=== PATIENT | male | born 1995 | race Caucasian/White ===

== ENCOUNTER 2016-11-17 15:04 | Inpatient (IN) | payer MEDICAID ==
[2016-11-17] VITALS (7 sets, daily range): BP systolic 117–150; BP diastolic 55–79; PULSE 61–100; RESP 12–22; TEMP 98–99.1; O2SAT 97–100
[~2016-11-17] VITALS: Ht 182.9 cm; Wt 81.6 kg
--- NOTE | 2016-11-17 | NUR ---
Patient lying in bed, alert and talking with his fiancee. No sign of distress noted. Will continue to monitor. Addendum: 11/19/16 at 0244 by Liliane De La Torre RN wrong date
--- NOTE | 2016-11-17 | NUR ---
Observed patient lying in bed with eyes closed. Rise and fall of chest noted. no sign of immediate distress noted. Satyae at bedside. Addendum: 11/19/16 at 0242 by Liliane De La Torre RN wrong date. should be 11/18/2016 0000H.
--- NOTE | 2016-11-17 15:04 | NUR ---
BROUGHT IN BY ACLS [address] AND ANGELITO CASTANEDA, PLACED IN BED #1 AND TRIAGED. REPORT GIVEN TO TERESO
--- NOTE | 2016-11-17 15:09 | NUR ---
Telemetry strip printed and interpreted as sinus tachycardia. HR: 101
--- NOTE | 2016-11-17 15:10 | NUR ---
Patient was brought in by ACLS. Patient is awake, alert and oriented x4. Patient states that he took 24 tablets of Tylenol but unable to give dosage about 1 hour prior to arrival. Patient states that he has pain in his hamstring. Denies any other drugs used. No other complaints or injuries per patient or as noted.
--- NOTE | 2016-11-17 15:11 | NUR ---
PT STATES THAT HE DID NOT WANT TO KILL HIMSELF, STATES HE HAS A PULLED HAMSTRING AND TOOK IT FOR PAIN.
--- NOTE | 2016-11-17 15:12 | NUR ---
Called Poison Control at [phone] and spoke with Ting, Pharmacist . Per recommendations: Activated Charcoal 1gm/kg, Salicylate level, Blood Alcohol, CMP, CBC, and Urine Drug Screen now. At 1820, 4 hour Tylenol Level, if higher than 150 than 24 hour dosage of Mu[address]ist. Dr. Reyna notified. Will continue to monitor patient.
--- NOTE | 2016-11-17 15:15 | NUR ---
Lethality assesment and patient & room/environment safety checklist done.
--- NOTE | 2016-11-17 15:34 | NUR ---
Patient placed on suicide precautions. Patient placed in room 1 within close proximity to nurses' station for closer observation and monitoring. All clothing removed, placed in hospital gown. Metal detector wand used to further screen patient of any potential hazardous belongings. All belongings inventoried, placed in bags and removed from room. Addendum: 11/17/16 at 1609 by SDEDCJM Patient is on Nasal Cannula 2L, Pulse oximetry, blood pressure, and cardiac monitoring.
--- NOTE | 2016-11-17 15:44 | NUR ---
Note praful in ED - 11/17/16 at 1618 by SDEDCJM Patient's girlfriend, Kristel, took 24 tablets of Tylenol 500 mg around [id number]. She reports that around 1340 today patient arrived at her place of work stating that "this is over". Girlfriend reports that patient has been depressed lately and has recently lost her mother. Girlfriend denies any previous suicidal attempts and does report that he is seeing a psychologist on his college campus. Girlfriend will go home to bring bottle of Tylenol.
--- NOTE | 2016-11-17 15:44 | NUR ---
Patient's girlfriend, Kristel, took 24 tablets of Tylenol 500 mg around 8953-1611. She reports that around 1340 today patient arrived at her place of work stating that "this is over". Girlfriend reports that patient has been depressed lately and has recently lost his mother. Girlfriend denies any previous suicidal attempts and does report that he is seeing a psychologist on his college campus. Girlfriend will go home to bring bottle of Tylenol.
--- NOTE | 2016-11-17 16:05 | NUR ---
Girlfriend brought in tylenol 500mg capsule bottle. Bottle counted and 28 capsules (14,000 mg) are missing. Girlfriend reports that bottle was brand new prior to patient ingesting it. Dr. Reyna notified.
[2016-11-17] MEDS ORDERED: D5W IV ONE ×3 (16:15→19:15)
[2016-11-17] MEDS ORDERED: ACETYLCYSTEINE IV ONE ×3 (16:15→19:15)
[2016-11-17 16:30] LABS: BASOPHILS % (AUTO) 0.7 % (0.0-2.0); EOSINOPHILS % (AUTO) 0.6 % (0.0-4.0); HEMATOCRIT 40.8 % (36-54); HEMOGLOBIN 13.1 g/dL (14.0-18.0); LYMPHOCYTES # (AUTO) 1.1 K/uL (1.0-5.5); LYMPHOCYTES % (AUTO) 15.2 % (20.5-51.5); MEAN CORPUSCULAR HEMOGLOBIN 29 pg (27-31); MEAN CORPUSCULAR HGB CONC 32 % (32-36); MEAN CORPUSCULAR VOLUME 88 fL (79.0-98.0); MONOCYTES # (AUTO) 0.5 K/uL (0.0-1.0); MONOCYTES % (AUTO) 7.4 % (1.7-9.3); NEUTROPHILS # (AUTO) 5.3 K/uL (1.8-7.7); NEUTROPHILS % (AUTO) 76.1 % (40.0-70.0); PLATELET COUNT (AUTO) 347 K/uL (130-430); RED BLOOD CELL COUNT(AUTO) 4.61 MIL/uL (4.2-6.2); RED CELL DISTRIBUTION WIDTH 11.8 % (9.0-15.0); WHITE BLOOD COUNT (AUTO) 6.9 K/uL (4.8-10.8)
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
[2016-11-17 16:41] LABS: ANION GAP 5 (5-15); CHLORIDE 104 mmol/L (98-107); CREATININE 1.17 mg/dL (0.55-1.30); GLUCOSE 102 mg/dL (70-99); POTASSIUM 4.1 mmol/L (3.5-5.1); SODIUM SERUM 138 mmol/L (136-145); UREA NITROGEN, BLOOD 12 mg/dL (8-21)
[2016-11-17] MEDS ORDERED: ACETYLCYSTEINE IV 6000 MG/30 ML VIAL IV ONE (16:43)
[2016-11-17 16:45] LABS: ALANINE AMINOTRANSFERASE 44 U/L (12-78); ALBUMIN 3.6 g/dL (3.4-4.8); ASPARTATE AMINOTRANSFERASE 57 U/L (10-37); SALICYLATE 1 mg/dL (3-30); TOTAL BILIRUBIN 0.3 mg/dL (0.0-1.0); TOTAL PROTEIN, SERUM 7.6 g/dL (6.4-8.3)
[2016-11-17 16:51] LABS: GFR AFRICAN AMERICAN 100 mL/min (>90)
[2016-11-17 16:52] LABS: ALCOHOL, BLOOD < 3 mg/dL (<10)
[2016-11-17 16:57] LABS: ACETAMINOPHEN 106 ug/mL (1-30)
[2016-11-17 16:58] LABS: BARBITURATE, URINE NEGATIVE (NEG <=200); BENZODIAZEPINE, URINE NEGATIVE (NEG <=150); CANNABINOID, URINE POSITIVE (NEG <=50); COCAINE, URINE NEGATIVE (NEG <=150); METHAMPHETAMINES SCREEN,URINE NEGATIVE (NEG <=500); OPIATE, URINE NEGATIVE (NEG <=100); PHENCYCLIDINE SCREEN,URINE NEGATIVE (NEG <=25); UR TRICYCLIC ANTIDEPRESSANTS NEGATIVE (NEG <=300); URINE AMPHETAMINE NEGATIVE (NEG <=500); URINE METHADONE NEGATIVE (NEG <=200); URINE OXYCODONE SCREEN NEGATIVE (NEG <=100); URINE PROPOXYPHENE SCREEN NEGATIVE (NEG <=300)
--- NOTE | 2016-11-17 18:10 | NUR ---
Patient will be admitted to care of Dr. Navarro. Admitted to ICU unit. Will go to room 8. Belongings list completed. Summary report printed. Report will be given at bedside to ANDRA Muro.
--- NOTE | 2016-11-17 18:10 | NUR ---
ADMISSION NOTE Received patient from ER via gurney, received report at bedside by RN. Patient admitted with diagnosis of Acute Acetaminophen Overdose. Patient oriented to hospital routine, call light, toileting and safety-patient verbalized understanding. Patient awake,alert,oriented x 4, guarded upon approach, lethargic and evasive to policy writer during admit. Addendum: 11/17/16 at 1945 by Bhaskar Borja RN Room/environment safety checked upon admission. Addendum: 11/17/16 at 1999 by Bhaskar Borja RN All belongings and contraband sent home with Kay reed.
--- NOTE | 2016-11-17 18:15 | NUR ---
PT OBSERVED AT BEDSIDE AND LYING IN BEAD. SR ON MONITOR AND VSS. INFORMED OF CAMERA FOR CONTINUOUS MONITORING.
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
--- NOTE | 2016-11-17 18:25 | NUR ---
PATIENT UPDATE: Patient currently vomiting, no signs of distress, vss.
--- NOTE | 2016-11-17 18:30 | NUR ---
OBSERVED AT BEDSIDE AND IN NO DISTRESS. C/O NAUSEA.
--- NOTE | 2016-11-17 18:40 | NUR ---
PATIENT UPDATE: Patient resting in bed, no signs of distress, vss. Patient continues to be monitored closely. Deputy Sheriff obrien # [id number] at bedside interviewing patient.
--- NOTE | 2016-11-17 18:42 | NUR ---
Dr Macedo's exchange called. Called Dr. Macedo's exchange for consult. exchanged informed me that he is unavailable. Requested whoever is communication clerk to be called with consult. Dr. Gonzales will be notified.
--- NOTE | 2016-11-17 18:45 | NUR ---
PT VOMITING AND NURSE WITH PT AT BEDSIDE.
--- NOTE | 2016-11-17 18:55 | NUR ---
PATIENT UPDATE: Patient resting in bed with girlfriend. No signs of distress, vss. Patient continues to be monitored closely.
--- NOTE | 2016-11-17 19:00 | NUR ---
PT OBSERVED AT BEDSIDE AND FAMILY MEMBERS PRESENT TALKING TO .
[2016-11-17] MEDS ORDERED: ONDANSETRON HCL 4 MG/2 ML VIAL IVP PRN (19:15)
--- NOTE | 2016-11-17 19:15 | NUR ---
OBSERVED PT AT BEDSIDE WHILE HANGING IV. NO DISTRESS.
--- NOTE | 2016-11-17 19:20 | NUR ---
CLOSING NOTE: Edorsed care to ANDRA Uriarte. Report given at bedside. Lethality assesment and patient & room/environment safety checklist endorsed to ANDRA Uriarte.
--- NOTE | 2016-11-17 19:20 | NUR ---
DR CHENG/POISON CONTROL SPOKE WITH DR CHENG REGARDING POISON CONTROL GUIDELINES. HE SAID TO FOLLOW ALL THEIR RECOMMENDATIONS AND ENTER THE ORDERS FOR MEDICATIONS OR LABS NECESSARY. ENDORSED TO ONCOMING SHIFT.
[2016-11-17] MEDS: NACL 0.9% 1,000 ML IV SCH (19:30)
--- NOTE | 2016-11-17 19:30 | NUR ---
OBSERVED PT AT BEDSIDE. FAMILY PRESENT. PT NOT SPEAKING. NO DISTRESS. CHOCOLATE DIPPER TO ASSUME CARE.
--- NOTE | 2016-11-17 19:35 | NUR ---
PM SHIFT ASSESSMENT Patient alert and oriented and able to make needs known. Breathing unlabored. Afebrile. Pulses strong and palpable in all extremities. IV on left AC,18g, patent and intact, no sign of redness and swelling on IV site. Acetadote IV 4500 mg running at 125ml/hr. Patient denies pain at this time. Patient crying. Fiancee at bedside comforting patient. Call light within reach. Bed at lowest position.
[2016-11-17] MEDS ORDERED: MAGNESIUM SULFATE 50 ML IV PRN (20:00)
[2016-11-17] MEDS ORDERED: POTASSIUM CHLORIDE 10 MEQ TAB.PRT.SR PO PRN (20:00)
[2016-11-17] MEDS ORDERED: DOCUSATE SODIUM 100 MG CAPSULE PO PRN (20:00)
[2016-11-17] MEDS ORDERED: LORazepam 2 MG/ML VIAL IVP PRN (20:00)
[2016-11-17] MEDS ORDERED: ZOLPIDEM TARTRATE 5 MG TABLET PO PRN (20:00)
--- NOTE | 2016-11-17 20:00 | NUR ---
VOMIT PT. vomited yellowish liquid about 50 ml. Pt. complaining of stomach pain. 10/10 pain level verbalized by the patient. Patient crying and turning in bed. Seth and seth's mom at bedside.
--- NOTE | 2016-11-17 20:15 | NUR ---
PAIN Pain medication given to patient. Surya still at bedside and asked permission if she could stay the night.
--- NOTE | 2016-11-17 20:20 | NUR ---
AGITATED, ON HIS KNEES IN THE BED, MOANING IN PAIN WITH MONITOR LEADS OFF.ASSISTED TO LAY BACK IN BED, PLACED LEADS BACK ON.GIRLFRIEND AT BEDSIDE AND PT SAID "JUST LET ME ".REASSURED AND EMOTIONAL SUPPORT GIVEN AND PAIN MED GIVEN THIS TIME.
[2016-11-17] MEDS: MORPHINE 2 MG/ML INJ. SYRINGE IVP PRN (20:22)
--- NOTE | 2016-11-17 21:00 | NUR ---
OBSERVATION Observed patient at bedside with fiancee. Denies any pain at this time. No sign of distress noted. Will continue to monitor.
--- NOTE | 2016-11-17 21:15 | NUR ---
Observed patient talking to umeshe at bedside. No sign of distress noted.
--- NOTE | 2016-11-17 21:30 | NUR ---
Observed patient at bedside. Lying in bed with eyes closed. Fiancee at bedside.
--- NOTE | 2016-11-17 21:35 | NUR ---
WANDING: Security came to wand patient. Patient calm, in no acute distress or SOB. Satya and satya's mother at bedside.
--- NOTE | 2016-11-17 21:45 | NUR ---
Voided Patient's fiancee assisted patient to void in the toilet seat. PAtient does not want to use the urinal provided at bedside. Unable to measure output. Urinated yellow,clear liquid.
[2016-11-17] MEDS: ONDANSETRON HCL 4 MG/2 ML VIAL IVP PRN (21:54)
[2016-11-17] MEDS ORDERED: MAGNESIUM SULFATE 50 ML IV ONE (21:58)
--- NOTE | 2016-11-17 22:00 | NUR ---
Observed patient at bedside. resting comfortably with eyes closed. Fiancee at bedside.
--- NOTE | 2016-11-17 22:15 | NUR ---
Observed patient lying in bed with eyes closed. Rise and fall of chest noted. no sign of immediate distress noted. Fiancee at bedside.
--- NOTE | 2016-11-17 22:30 | NUR ---
Observed patient lying in bed with eyes closed. Rise and fall of chest noted. no sign of immediate distress noted. Fiancee at bedside.
--- NOTE | 2016-11-17 22:45 | NUR ---
Patient observed. Lying in bed with eyes closed. no immediate sign of distress noted.
--- NOTE | 2016-11-17 23:00 | NUR ---
Patient observed. Lying in bed with eyes closed. no immediate sign of distress noted.
--- NOTE | 2016-11-17 23:15 | NUR ---
Patient lying in bed, alert and talking with his fiancee. No sign of distress noted. Will continue to monitor.
--- NOTE | 2016-11-17 23:30 | NUR ---
Observed patient talking to umeshe at bedside. No sign of distress noted.
--- NOTE | 2016-11-17 23:45 | NUR ---
Patient lying comfortably in bed with eyes closed. No sign of distress noted. Fiancee at bedside.
[2016-11-18] VITALS (24 sets, daily range): BP systolic 92–139; BP diastolic 43–92; PULSE 56–84; RESP 12–28; TEMP 97.4–98.9; O2SAT 95–99
--- NOTE | 2016-11-18 | NUR ---
Observed patient lying in bed with eyes closed. Rise and fall of chest noted. no sign of immediate distress noted. Fiancee at bedside.
--- NOTE | 2016-11-18 | NUR ---
Patient observed lying in bed with eyes closed. Rise and fall of chest noted. No sign of distress noted. Will continue to monitor.
--- NOTE | 2016-11-18 00:15 | NUR ---
Patient observed lying in bed with eyes closed. Rise and fall of chest noted. No sign of distress noted. Will continue to monitor.
--- NOTE | 2016-11-18 00:30 | NUR ---
PT UPDATE: Patient resting quietly. No acute distress noted. Vital signs within normal range. Satya and satya's mother at bedside. Will continue to monitor.
--- NOTE | 2016-11-18 00:45 | NUR ---
PT UPDATE: Patient crying at bedside with umesh's mother. No acute distress or SOB noted. No signs or indication that patient will hurt himself or others. Patient continues to be monitored closely.
--- NOTE | 2016-11-18 01:00 | NUR ---
PT UPDATE: Patient comfortably sleeping. Vital signs stable. Safety precautions in place. Fiance still at bedside. Will continue to monitor.
--- NOTE | 2016-11-18 01:15 | NUR ---
RESTING: Patient sleeping comfortably at this time. No acute distress or SOB noted. Vital signs stable. Will continue to monitor.
--- NOTE | 2016-11-18 01:30 | NUR ---
PT UPDATE: Patient in no acute distress. Patient awake, denies pain or discomfort at this time. Only complaining that he is hungry. 2 slices of turkey sandwich, jello and pudding given. Patient tolerating food well. Fiancee at bedside. Will continue to monitor.
--- NOTE | 2016-11-18 01:44 | NUR ---
DR MCCLAIN CALLED THAT SHE NO LONGER COMES HERE IN [facility], AND SHE SAID THAT WHEN THE CONSULT ORDER REACH THEIR OFFICE IN AM, THEY WILL DECIDE WHICH DOCTOR TO COME, COVERING FOR DR LARES.CALLED THE EXCHANGE AGAIN THIS TIME TO CLARIFY THE CONSULT THAT WE CALLED FOR EARLIER, TALKED TO ELIAS, AND SHE SAID DR LARES IS IN TOWN AND SHE WILL FORWARD THE ORDER TO HIM IN AM.
--- NOTE | 2016-11-18 01:45 | NUR ---
PT UPDATE: Patient went back to sleep after eating. No signs of distress noted. Patient denies having thoughts of hurting self or others. Denies pain or discomfort at this time. Safety precautions in place. Fiance still at bedside. Will continue to monitor.
--- NOTE | 2016-11-18 02:00 | NUR ---
PT UPDATE: Patient in no acute distress. Patient sleeping comfortably with fiance at bedside. Will continue to closely monitor.
--- NOTE | 2016-11-18 02:15 | NUR ---
PT UPDATE: Patient dozes in and out of sleep. When asked if he needs anything, patient shakes head from side to side then closes eyes. Patient in no acute distress at this time. Will continue to monitor.
[2016-11-18] MEDS: NACL 0.9% 1,000 ML IV SCH ×4 (02:30→22:18)
--- NOTE | 2016-11-18 02:30 | NUR ---
Observed patient lying in bed with eyes closed. No sign of distress noted. Will continue to monitor.
--- NOTE | 2016-11-18 02:45 | NUR ---
Observed patient lying in bed with eyes closed. No sign of distress noted. Will continue to monitor.
--- NOTE | 2016-11-18 03:00 | NUR ---
Patient lying in bed with fiancee at bedside. No sign of distress noted. RN asked patient if he needs anything. Patient said "no". Advise patient to use call light to ask for assistance. Call light within reach. Will continue to monitor.
--- NOTE | 2016-11-18 03:15 | NUR ---
Patient observed lying in bed with eyes closed. Rise and fall of chest noted. No sign of distress noted
--- NOTE | 2016-11-18 03:30 | NUR ---
Patient observed lying in bed with eyes closed. Rise and fall of chest noted. No sign of distress noted
--- NOTE | 2016-11-18 03:45 | NUR ---
Patient observed lying in bed with eyes closed. No sign of distress noted. Vital signs stable. fiancee still at bedside. Will continue to monitor.
--- NOTE | 2016-11-18 04:00 | NUR ---
PT UPDATE: Patient sleeping comfortably. No acute distress or SOB noted. Vital signs stable. Will continue to monitor.
--- NOTE | 2016-11-18 04:15 | NUR ---
PT UPDATE: No significant change in condition. Patient's condition stable. Bed maintained in lowest level. Call light within reach. In no acute distress or SOB at this time. Will continue to monitor.
--- NOTE | 2016-11-18 04:30 | NUR ---
Observed Pt. lying comfortably in bed with eyes closed. No sign of distress noted.
--- NOTE | 2016-11-18 05:10 | NUR ---
LAB: [employer] Serv[employer] at bedside for AM lab draw. Reminded electrician's helper Alessandra that Acetaminophen level is to be drawn at 0930. [employer] Servicer disagreed because she said that the sticker came out which means that the level should be drawn at this time. Informed electrician's helper that the order is at 0930 and not 0500 but electrician's helper argued that that's what they have in the lab and she stated that if that's the case then the order should be discontinued and reordered again but i argued that the order is 0930 and never been at 0500. Notified charge nurse about it.
--- NOTE | 2016-11-18 05:30 | NUR ---
X-RAY: oscillograph technician at bedside taking chest x-ray.
[2016-11-18] MEDS: ONDANSETRON HCL 4 MG/2 ML VIAL IVP PRN (05:34)
--- NOTE | 2016-11-18 05:45 | NUR ---
Patient awake,alert and oriented. Talking to his fiancee. No sign of distress noted. Will continue to monitor.
--- NOTE | 2016-11-18 06:00 | NUR ---
CHG BATH Pt. awake and alert. Fiancee still at bedside. CHG bath given by fiancee as per patient's request. No sign of distress noted.
--- NOTE | 2016-11-18 06:15 | NUR ---
Pt. observed talking to his fiancee. No sign of distress noted. Vital signs WNL.
--- NOTE | 2016-11-18 06:30 | NUR ---
Pt. observed lying in bed with eyes closed. No sign of distress noted. Fiancee still in the room with patient.
[2016-11-18 06:39] LABS: BASOPHILS % (AUTO) 0.3 % (0.0-2.0); EOSINOPHILS # (AUTO) 0.1 K/uL (0.0-0.4); EOSINOPHILS % (AUTO) 1.1 % (0.0-4.0); HEMATOCRIT 39.5 % (36-54); HEMOGLOBIN 13.1 g/dL (14.0-18.0); LYMPHOCYTES # (AUTO) 1.3 K/uL (1.0-5.5); LYMPHOCYTES % (AUTO) 20.7 % (20.5-51.5); MEAN CORPUSCULAR HEMOGLOBIN 30 pg (27-31); MEAN CORPUSCULAR HGB CONC 33 % (32-36); MEAN CORPUSCULAR VOLUME 89 fL (79.0-98.0); MONOCYTES # (AUTO) 0.8 K/uL (0.0-1.0); MONOCYTES % (AUTO) 11.9 % (1.7-9.3); NEUTROPHILS # (AUTO) 4.2 K/uL (1.8-7.7); PLATELET COUNT (AUTO) 294 K/uL (130-430); RED BLOOD CELL COUNT(AUTO) 4.43 MIL/uL (4.2-6.2); RED CELL DISTRIBUTION WIDTH 11.8 % (9.0-15.0); WHITE BLOOD COUNT (AUTO) 6.4 K/uL (4.8-10.8)
--- NOTE | 2016-11-18 06:45 | NUR ---
Patient observed lying in bed with eyes closed. Rise and fall of chest noted. No sign of distress noted
--- NOTE | 2016-11-18 07:00 | NUR ---
SAFETY MONITORING PT RESTING IN BED. EYES CLOSED. CHEST RISING AND FALLING. NO ACUTE DISTRESS.
[2016-11-18 07:02] LABS: ALBUMIN 2.9 g/dL (3.4-4.8); BILIRUBIN,DIRECT 0.1 mg/dL (0.0-0.3); CALCIUM 8.7 mg/dL (8.4-11.0); CREATININE 0.84 mg/dL (0.55-1.30); POTASSIUM 3.5 mmol/L (3.5-5.1); TOTAL BILIRUBIN 0.4 mg/dL (0.0-1.0); TOTAL PROTEIN, SERUM 6.9 g/dL (6.4-8.3)
--- NOTE | 2016-11-18 07:15 | NUR ---
SAFETY MONITORING PT RESTING IN BED. EYES CLOSED. CHEST RISING AND FALLING. NO ACUTE DISTRESS.
--- NOTE | 2016-11-18 07:30 | NUR ---
AM ROUNDS RECEIVED PT UP IN BED. AWAKE, ALERT, ORIENTED X4. BREATHING IS EVEN AND UNLABORED ON RA. NO ACUTE DISTRESS. VSS. TELEMETRY READS NSR ON MONITOR. THERAPEUTIC CONVERSATION HELD. PT DENIES SUICIDAL IDEATION NOW, BUT ADMITS THAT HE WANTED TO END HIS LIFE WHEN HE TOOK THE TYLENOL. PT DOES NOT WANT TO EXPLAIN WHY HE WANTED TO END HIS LIFE, BUT STATES THAT HE FEELS MUCH BETTER NOW AND DOES NOT FEEL LIKE HARMING HIMSELF ANYMORE. REASSURANCE AND COMFORT MEASURES PROVIDED TO PT. PT VERBALIZED GRATITUDE.
--- NOTE | 2016-11-18 07:37 | NUR ---
Nutrition Update Zbigniew Scale 17 noted. Pt admitted for acute acetaminophen overdose. Diet: regular BMI: 24.4 kg/m2 RD to follow per nutrition care standards.
--- NOTE | 2016-11-18 07:45 | NUR ---
SAFETY MONITORING PT SITTING UP IN BED. BREAKFAST TRAY SET UP. DISCUSSED POC. PT VERBALIZED UNDERSTANDING.
--- NOTE | 2016-11-18 08:00 | NUR ---
SAFETY MONITORING PT SITTING UP EATING BREAKFAST AND TALKING TO GIRLFRIEND AT BEDSIDE.
--- NOTE | 2016-11-18 08:15 | NUR ---
SAFETY MONITORING BREAKFAST TRAY PICKED UP. PT ASKED IF HIS "BLOOD LEVELS [ARE]GOOD ENOUGH TO GO HOME." EXPLAINED TO PT THAT LABS ARE STILL BEING MONITORED. THE NEXT LAB DRAW IS AT 0930. WE WILL FIRST NEED TO WAIT FOR RESULTS. DR CHENG WILL SEE PT TODAY.
--- NOTE | 2016-11-18 08:30 | NUR ---
SAFETY MONITORING PT RESTING IN BED. EYES CLOSED. CHEST RISING AND FALLING. NO ACUTE DISTRESS.
--- NOTE | 2016-11-18 08:45 | NUR ---
SAFETY MONITORING PT RESTING IN BED. EYES CLOSED. CHEST RISING AND FALLING. NO ACUTE DISTRESS.
--- NOTE | 2016-11-18 09:00 | NUR ---
SAFETY MONITORING PT RESTING IN BED. EYES CLOSED. CHEST RISING AND FALLING. NO ACUTE DISTRESS.
--- NOTE | 2016-11-18 09:15 | NUR ---
SAFETY MONITORING PT RESTING IN BED. EYES CLOSED. CHEST RISING AND FALLING. NO ACUTE DISTRESS.
--- NOTE | 2016-11-18 09:30 | NUR ---
SAFETY MONITORING PT RESTING IN BED. EYES CLOSED. CHEST RISING AND FALLING. NO ACUTE DISTRESS.
--- NOTE | 2016-11-18 09:45 | NUR ---
SAFETY MONITORING IVF BAG REPLACED. PT IS STILL RESTING WITH EYES CLOSED.
--- NOTE | 2016-11-18 10:00 | NUR ---
SAFETY MONITORING PT RESTING IN BED. EYES CLOSED. CHEST RISING AND FALLING. NO ACUTE DISTRESS.
--- NOTE | 2016-11-18 10:15 | NUR ---
HERE DR CHENG, PCP, HERE TO SEE PT. ASSESSMENT/CONVERSATION HELD AT BEDSIDE. NEW ORDERS NOTED.
--- NOTE | 2016-11-18 10:30 | NUR ---
SAFETY MONITORING PT IS SITTING UP. PT VERBALIZING FEELING HAPPY. PT REPORTS RECEIVING MEDICAL CLEARANCE FROM DR CHENG. DISCUSSED MD VISIT WITH PT. UPDATED PT ON PROTOCOL- WE NEED TO WAIT FOR DR LARES TO SEE PT FOR CLEARANCE. PT VERBALIZED UNDERSTANDING.
--- NOTE | 2016-11-18 10:45 | NUR ---
CONSULT: FOLLOW UP DR. ARNAUD HANSON CALLED FOR CONSULT FOLLOW UP. SPOKE TO ROCKY ( [facility]CHANGE).
[2016-11-18 10:52] LABS: ALBUMIN 2.8 g/dL (3.4-4.8); BILIRUBIN,DIRECT 0.2 mg/dL (0.0-0.3); TOTAL BILIRUBIN 0.4 mg/dL (0.0-1.0); TOTAL PROTEIN, SERUM 6.7 g/dL (6.4-8.3)
--- NOTE | 2016-11-18 11:00 | NUR ---
SAFETY MONITORING PT RESTING IN BED. EYES CLOSED. CHEST RISING AND FALLING. NO ACUTE DISTRESS.
--- NOTE | 2016-11-18 11:15 | NUR ---
SAFETY MONITORING PT UP IN BED. ASKING FOR GIRLFRIEND. GIRLFRIEND RETURNED FROM WAITING ROOM
--- NOTE | 2016-11-18 11:30 | NUR ---
SAFETY MONITORING PT C/O BEING HUNGRY. DIETARY WILL BE HERE BETWEEN [id number]. PT REQUEST AN EXTRA SANDWICH WITH LUNCH. CALLED DIETARY- PLACED ORDER.
--- NOTE | 2016-11-18 11:45 | NUR ---
SAFETY MONITORING PT RESTING IN BED. TALKING WITH GF AT BEDSIDE
--- NOTE | 2016-11-18 12:00 | NUR ---
SAFETY MONITORING LUNCH TRAY HERE. SET UP TRAY AT BEDSIDE. PT REPORTS THAT HE IS FEELING BETTER NOW.
--- NOTE | 2016-11-18 12:15 | NUR ---
SAFETY MONITORING PT SITTING UP AT EOB EATING LUNCH, TALKING WITH GF. NO FURTHER NEEDS.
--- NOTE | 2016-11-18 12:30 | NUR ---
SAFETY MONITORING PT RESTING IN BED TALKING WITH GIRLFRIEND. NO NEEDS AT THIS TIME
--- NOTE | 2016-11-18 12:45 | NUR ---
SAFETY MONITORING PT RESTING IN BED TALKING WITH GIRLFRIEND. NO NEEDS AT THIS TIME
--- NOTE | 2016-11-18 13:00 | NUR ---
SAFETY MONITORING PT RESTING IN BED TALKING WITH GIRLFRIEND. NO NEEDS AT THIS TIME
--- NOTE | 2016-11-18 13:15 | NUR ---
SAFETY MONITORING PT RESTING IN BED TALKING WITH GIRLFRIEND. NO NEEDS AT THIS TIME
--- NOTE | 2016-11-18 13:30 | NUR ---
SAFETY MONITORING PT RESTING IN BED. EYES CLOSED. CHEST RISING AND FALLING. NO ACUTE DISTRESS.
--- NOTE | 2016-11-18 13:45 | NUR ---
SAFETY MONITORING PT RESTING IN BED. EYES CLOSED. CHEST RISING AND FALLING. NO ACUTE DISTRESS.
--- NOTE | 2016-11-18 14:00 | NUR ---
SAFETY MONITORING PT RESTING IN BED. EYES CLOSED. CHEST RISING AND FALLING. NO ACUTE DISTRESS.
--- NOTE | 2016-11-18 14:15 | NUR ---
SAFETY MONITORING PT RESTING IN BED. EYES CLOSED. CHEST RISING AND FALLING. NO ACUTE DISTRESS.
--- NOTE | 2016-11-18 14:30 | NUR ---
RN ROUNDS MOTHER AND GRANDMOTHER OF GIRLFRIEND AT BEDSIDE TALKING TO PT. DISCUSSING PT BABY WITH GIRLFRIEND. I ASKED PT ABOUT THE BABY. PT IS SMILING WHILE SPEAKING OF HER. PT TOLD ME THAT HIS BABY IS ALMOST TWO Y/O. HER NAME IS SAMPSON. PT IS PLEASANT AND SEEMS HAPPY WHILE DISCUSSING BABY.
--- NOTE | 2016-11-18 14:45 | NUR ---
RN ROUNDS PT IS CRYING WITH GIRLFRIEND AND HER FAMILY. GIRLFRIENDS GRANDMOTHER IS TELLING PT HOW MUCH SHE LOVES HIM. PT IS CRYING AND HUGGING GIRLFRIENDS GRANDMOTHER.
--- NOTE | 2016-11-18 15:00 | NUR ---
SAFETY MONITORING PT IS UP IN BED VISITING WITH GF AND FAMILY. PT IS PLEASANT AND APPEARS TO BE IN GOOD SPIRITS
--- NOTE | 2016-11-18 15:15 | NUR ---
SAFETY MONITORING PT IS SITTING UP IN BED TALKING WITH GIRLFRIEND AND FAMILY.
--- NOTE | 2016-11-18 15:30 | NUR ---
SAFETY MONITORING PT IS SITTING UP IN BED TALKING WITH GIRLFRIEND AND FAMILY.
[2016-11-18] MEDS: MORPHINE 2 MG/ML INJ. SYRINGE IVP PRN ×2 (15:38→21:15)
--- NOTE | 2016-11-18 15:45 | NUR ---
SAFETY MONITORING PT IS SITTING UP IN BED TALKING WITH GIRLFRIEND AND FAMILY.
--- NOTE | 2016-11-18 16:00 | NUR ---
SAFETY MONITORING PT IS SITTING UP IN BED EATING FOOD BROUGHT IN BY GIRLFRIENDS FAMILY
--- NOTE | 2016-11-18 16:15 | NUR ---
SAFETY MONITORING CHANCE MUÑOZ IN PT ROOM SPEAKING WITH HIM PRIVATELY Addendum: 11/18/16 at 1704 by Maria E Campbell RN DEMETRIO
--- NOTE | 2016-11-18 16:29 | NUR ---
Social Service Note: Pt referred to social security benefits interviewer by nursing for suicide risk. LEATHER GOODS I ASSEMBLER met with at bedside to complete DC plan assessment and psychosocial assessment; pt appears to be depressed with flat affect. Pt was cooperative with LEATH[employer] I ASSEMBLER. LEATHER [employer] I ASSEMBLER spoke with pt about the pending psychiatric consult and the possible outcomes. Pt appears open to attending therapy/counseling to discuss his past and the events leading to his hospitalization. Pt currently denies any thoughts of hurting himself. Pt states that he did attempt to kill himself by taking the 26 tylenol. LEATHER [employer] I ASSEMBLER provided emotional support. LE[employer]ER [employer] I ASSEMBLER encouraged pt to open up and speak to psychiatrist when they complete the evaluation. LEATHER [employer] I ASSEMBLER provided pt with listing of outpatient mental health resources to arrange therapy/counseling once pt is discharged. LEATHER [employer] I ASSEMBLER will remain available for support and will follow up as needed.
--- NOTE | 2016-11-18 16:30 | NUR ---
SAFETY MONITORING DEMETRIO MUÑOZ IN PT ROOM SPEAKING WITH HIM PRIVATELY
--- NOTE | 2016-11-18 16:45 | NUR ---
SAFETY MONITORING PT UP IN BED TALKING WITH GIRLFRIEND AND FAMILY.
--- NOTE | 2016-11-18 17:06 | NUR ---
SAFETY MONITORING PT UP AT IN-ROOM TOILET. Addendum: 11/18/16 at 1707 by Maria E Campbell RN @1700
--- NOTE | 2016-11-18 17:15 | NUR ---
SAFETY MONITORING PT RESTING IN BED. EYES CLOSED, CHEST RISING AND FALLING. NO NONVERBAL INDICATION OF PAIN/DISCOMFORT
--- NOTE | 2016-11-18 17:30 | NUR ---
SAFETY MONITORING PT RESTING IN BED. EYES CLOSED, CHEST RISING AND FALLING. NO NONVERBAL INDICATION OF PAIN/DISCOMFORT
--- NOTE | 2016-11-18 17:45 | NUR ---
SAFETY MONITORING PT RESTING IN BED. EYES CLOSED, CHEST RISING AND FALLING. NO NONVERBAL INDICATION OF PAIN/DISCOMFORT
--- NOTE | 2016-11-18 18:00 | NUR ---
SAFETY MONITORING PT RESTING IN BED. EYES CLOSED, CHEST RISING AND FALLING. NO NONVERBAL INDICATION OF PAIN/DISCOMFORT
--- NOTE | 2016-11-18 18:10 | NUR ---
POISON CONTROL RECEIVED A CALL FROM NORMA FROM POISON CONTROL. ACCORDING TO ACETAMINOPHEN POISON CONTROL, LFT NEEDS TO BE DRAWN 1HR BEFORE MUCOMYST IS DONE. IF THE AST LAB RESULT TRENDS UP- THEN CONTINUE WITH MUCOMYST. IF AST LAB IS DOWN, THEN MUCOMYST IS COMPLETED.
--- NOTE | 2016-11-18 18:15 | NUR ---
SAFETY MONITORING PT SITTING UP IN BED VISITING WITH FAMILY AND EATING FOOD FROM HOME
--- NOTE | 2016-11-18 18:30 | NUR ---
SAFETY MONITORING PT SITTING UP IN BED VISITING WITH FAMILY AND EATING FOOD FROM HOME. PT IS LAUGHING AND ENGAGING
--- NOTE | 2016-11-18 18:45 | NUR ---
SAFETY MONITORING PT SITTING UP IN BED VISITING WITH GIRLFRIEND AND FAMILY.
--- NOTE | 2016-11-18 19:00 | NUR ---
CLOSING NOTE PT RESTING IN BED, TALKING AND ENGAGING WITH FAMILY. REPORT GIVEN TO TIFFANIE. ENDORSED POISON CONTROL PROTOCOL RE: AST LAB AND MUCUMYST ADMINISTRATION. ALL PT NEEDS ARE MET
[2016-11-18 19:11] LABS: BILIRUBIN,DIRECT 0.1 mg/dL (0.0-0.3); TOTAL BILIRUBIN 0.2 mg/dL (0.0-1.0); TOTAL PROTEIN, SERUM 6.9 g/dL (6.4-8.3)
--- NOTE | 2016-11-18 19:15 | NUR ---
Pt. observed sitting in his bed with family at bedside. No sign of distress noted.
--- NOTE | 2016-11-18 19:30 | NUR ---
PM SHIFT ASSESSMENT Received patient's report from am shift Maria E at 1900H. Patient alert, awake and oriented and able to make needs known. Breathing not labored. All pulses palpable in all extremities. No edema noted. IV site on the Left AC, patent and intact, no sign of infiltration noted and running NS @ 150ml/hr. Patient sitting in bed with family at bedside, talking and laughing. No sign of distress noted. Will continue to monitor.
--- NOTE | 2016-11-18 19:45 | NUR ---
Continue to watch for patient's safety. On suicidal precaution. V/S stable. No distress noted.
--- NOTE | 2016-11-18 19:45 | NUR ---
Pt. observed sitting in his bed with family at bedside. Patient talking with family members and eating food that family brought. No sign of distress noted
--- NOTE | 2016-11-18 19:55 | NUR ---
CONTACTED POISON CONTROL, TALKED TO SHANELL AND UPDATED ON LIVER PANEL RESULTS DRAWN AT 1840 AND SHE SAID THE RESULTS IS OK AND SHE WILL CLOSE THE CASE AT THIS TIME.
--- NOTE | 2016-11-18 20:00 | NUR ---
Pt. observed sitting in his bed with family at bedside. No sign of distress noted.
--- NOTE | 2016-11-18 20:15 | NUR ---
Observed patient talking to umeshe and her family at bedside. No sign of distress noted.
--- NOTE | 2016-11-18 20:30 | NUR ---
Observed patient talking to umeshe and her family at bedside. No sign of distress noted.
--- NOTE | 2016-11-18 20:45 | NUR ---
Observed patient in room, alert and oriented and talking to his new visitor. No sign of distress noted. Will continue to monitor.
--- NOTE | 2016-11-18 21:00 | NUR ---
Observed patient in room,awake, alert and oriented. No sign of distress noted. Will continue to monitor.
--- NOTE | 2016-11-18 21:15 | NUR ---
PAIN Patient complaining of abdominal pain and asked for pain medication. Verbalized that his pain level is 6/10. Morphine given as per order.
--- NOTE | 2016-11-18 21:30 | NUR ---
Observed patient sitting on his bed, alert and oriented and talking to his visitors/friends. no sign of distress noted.
--- NOTE | 2016-11-18 21:45 | NUR ---
Observed patient sitting on his bed, alert and oriented and talking to his visitors/friends. no sign of distress noted. Patient did not verbalized any suicidal ideation. Will continue to monitor.
--- NOTE | 2016-11-18 22:30 | NUR ---
Observed patient sitting on his bed, alert and oriented. Verbalized no needs at this time. No sign of distress noted. Patient did not verbalized any suicidal ideation. Will continue to monitor.
--- NOTE | 2016-11-18 22:45 | NUR ---
Patient sitting on his bed, awake,alert and oriented. Verbalized no needs at this time. No sign of distress noted. Patient did not verbalized any suicidal ideation. Will continue to monitor.
--- NOTE | 2016-11-18 23:15 | NUR ---
Patient sitting on his bed, awake,alert and oriented. All needs met. No sign of distress noted. Patient did not verbalized any suicidal ideation. Will continue to monitor.
--- NOTE | 2016-11-18 23:30 | NUR ---
Calm and cooperative. Denies any discomforts. V/S stable. Continue to monitor for suicidal ideation.
--- NOTE | 2016-11-18 23:45 | NUR ---
Condition unchanged. Denies any discomforts. V/S stable. Continue to monitor for suicidal ideation.
[2016-11-19] VITALS (18 sets, daily range): BP systolic 95–152; BP diastolic 42–85; PULSE 61–122; RESP 11–20; TEMP 97.9–99.1; O2SAT 95–100
--- NOTE | 2016-11-19 | NUR ---
Sound asleep. SR. V/S stable. Remains on suicidal precaution.
--- NOTE | 2016-11-19 00:04 | NUR ---
Noted with <2 minutes episode of SVT with rate of 170. V/S stable. Denies chest pain but verbalized he can feel his heart rate. Conveyed he was [place]. Will monitor the heart rate and will notify MD if another episode of SVT occur. Remains on suicidal precaution. Girlfriend at bedside very supportive.
--- NOTE | 2016-11-19 00:15 | NUR ---
Refused Ativan at this time. Calm and cooperative. HR is 120's. B/P stable. Saturating 100% on room air. Remains on suicidal precaution.
--- NOTE | 2016-11-19 00:30 | NUR ---
Remains awake calm and cooperative. Denies any discomforts. V/S stable. No distress noted. On suicide precaution.
--- NOTE | 2016-11-19 00:45 | NUR ---
On suicidal precaution. Condition unchanged. patient asleep. Girlfriend and mother's girlfriend at bedside very supportive.
--- NOTE | 2016-11-19 00:45 | NUR ---
Condition unchanged. Mother-in law arrived with girlfriend at bedside. V/S stable. ST with rate of 100's. On suicidal precaution.
--- NOTE | 2016-11-19 01:00 | NUR ---
Patient asleep. On suicidal precaution. Condition unchanged. Girlfriend and mother's girlfriend at bedside very supportive.
--- NOTE | 2016-11-19 01:15 | NUR ---
On suicidal precaution. Condition unchanged. Sound asleep. SR with rate of 70's. V/S stable. No distress noted.
--- NOTE | 2016-11-19 01:30 | NUR ---
On suicidal precaution. Asleep, no distress noted. V/S stable. Condition unchanged.
--- NOTE | 2016-11-19 01:45 | NUR ---
Sound asleep. SR rate of 70's. V/S stable. No distress noted. On suicidal precaution. No distress noted.
--- NOTE | 2016-11-19 02:00 | NUR ---
Remains on suicidal precaution. Condition unchanged. V/S stable. No distress noted.
--- NOTE | 2016-11-19 02:15 | NUR ---
Patient observed lying in bed with eyes closed. No sign of distress noted. Vital signs stable. fiancee at bedside. On suicidal precaution. Will continue to monitor.
--- NOTE | 2016-11-19 02:30 | NUR ---
Patient observed lying in bed with eyes closed. No sign of distress noted. Vital signs stable. fiancee at bedside. On suicidal precaution. Will continue to monitor.
--- NOTE | 2016-11-19 02:45 | NUR ---
Observed patient sleeping. VS stable. No sign of distress noted. Girlfriend at bedside. On suicidal precaution. Will continue to monitor.
[2016-11-19] MEDS: NACL 0.9% 1,000 ML IV SCH ×2 (02:48→09:28)
--- NOTE | 2016-11-19 03:00 | NUR ---
Observed patient sleeping. VS stable. No sign of distress noted. Girlfriend at bedside. On suicidal precaution. Will continue to monitor.
--- NOTE | 2016-11-19 03:15 | NUR ---
Pt. sleeping. No sign of distress noted. VS stable. On suicidal precaution. Will continue to monitor.
--- NOTE | 2016-11-19 03:30 | NUR ---
Patient still sleeping. No sign of distress noted. VS stable. On suicidal precaution. Will continue to monitor.
--- NOTE | 2016-11-19 03:45 | NUR ---
Patient still on suicidal precaution. VS stable. Still sleeping comfortable with girlfriend at bedside. Will continue to monitor.
--- NOTE | 2016-11-19 04:00 | NUR ---
Sound asleep. Girlfriend at bedside. SR. No distress noted. Remains on Suicidal precaution.
--- NOTE | 2016-11-19 04:15 | NUR ---
SR. No distress noted. Sound asleep. Girlfriend at bedside. Condition unchanged. Remains on Suicidal precaution.
--- NOTE | 2016-11-19 04:30 | NUR ---
Pt. sleeping. No sign of distress noted. VS stable. On suicidal precaution. Will continue to monitor.
--- NOTE | 2016-11-19 04:45 | NUR ---
Pt. sleeping and 0n suicidal precaution. No sign of distress noted. VS stable. Will continue to monitor.
--- NOTE | 2016-11-19 05:00 | NUR ---
Condition unchanged. V/S stable. No distress noted. Remains on seizure precaution.
--- NOTE | 2016-11-19 05:07 | NUR ---
LAB DRAW LAB drawn at bedside.
--- NOTE | 2016-11-19 05:15 | NUR ---
Pt. sleeping. No sign of distress noted. VS stable. On suicidal precaution. Will continue to monitor.
--- NOTE | 2016-11-19 05:30 | NUR ---
No sign of distress noted. VS stable. On suicidal precaution. Will continue to monitor.
--- NOTE | 2016-11-19 05:40 | NUR ---
CALLED DR ARNAUD HANSON TO FOLLOW-UP ON THE CONSULT.FIRST CALL WAS MADE ON 11/17/16 @ 8817. TO THIS TIME NOBODY CAME YET TO SEE THE PT.TALKED TO ELIAS AND SHE SAID SHE WILL FORWARD THE MSG TO DR DOMINIQUE
--- NOTE | 2016-11-19 05:45 | NUR ---
Pt. sleeping. No sign of distress noted. VS stable. On suicidal precaution. Will continue to monitor.
--- NOTE | 2016-11-19 06:00 | NUR ---
Patient sleeping with girlfriend at bedside. No sign of distress noted. VS stable. On suicidal precaution. Will continue to monitor.
--- NOTE | 2016-11-19 06:15 | NUR ---
Observed patient still asleep. Rise and fall of chest noted. VS WNL. No sign of distress noted. On suicidal precaution. will continue to monitor.
--- NOTE | 2016-11-19 06:30 | NUR ---
Patient awake,alert and oriented. No distress noted. On suicidal precaution.
[2016-11-19 06:32] LABS: BASOPHILS % (AUTO) 0.6 % (0.0-2.0); EOSINOPHILS # (AUTO) 0.2 K/uL (0.0-0.4); EOSINOPHILS % (AUTO) 4.2 % (0.0-4.0); HEMATOCRIT 35.2 % (36-54); HEMOGLOBIN 11.8 g/dL (14.0-18.0); LYMPHOCYTES # (AUTO) 1.2 K/uL (1.0-5.5); LYMPHOCYTES % (AUTO) 30.9 % (20.5-51.5); MEAN CORPUSCULAR HEMOGLOBIN 30 pg (27-31); MEAN CORPUSCULAR HGB CONC 33 % (32-36); MEAN CORPUSCULAR VOLUME 89 fL (79.0-98.0); MONOCYTES # (AUTO) 0.4 K/uL (0.0-1.0); MONOCYTES % (AUTO) 11.6 % (1.7-9.3); NEUTROPHILS # (AUTO) 2.1 K/uL (1.8-7.7); NEUTROPHILS % (AUTO) 52.7 % (40.0-70.0); PLATELET COUNT (AUTO) 302 K/uL (130-430); RED BLOOD CELL COUNT(AUTO) 3.96 MIL/uL (4.2-6.2); RED CELL DISTRIBUTION WIDTH 11.7 % (9.0-15.0); WHITE BLOOD COUNT (AUTO) 3.9 K/uL (4.8-10.8)
--- NOTE | 2016-11-19 06:45 | NUR ---
Patient lying in bed with eyes closed. No sign of distress noted. On suicidal precaution.
[2016-11-19 07:00] LABS: CALCIUM 8.6 mg/dL (8.4-11.0); CHLORIDE 108 mmol/L (98-107); CREATININE 0.93 mg/dL (0.55-1.30); GLUCOSE 103 mg/dL (70-99); POTASSIUM 3.9 mmol/L (3.5-5.1); SODIUM SERUM 139 mmol/L (136-145); UREA NITROGEN, BLOOD 4 mg/dL (8-21)
--- NOTE | 2016-11-19 07:00 | NUR ---
CLOSING NOTES Patient still on suicidal watch. Patient currently lying on the bed with eyes closed. Vital signs WNL. IV site on Left AC intact and no infiltration noted. IV running NS @ 150mnl/hr. Patient endorsed to am nurse Annabel.
--- NOTE | 2016-11-19 07:15 | NUR ---
[place] of care Received report from ANDRA Sanders and ANDRA Padilla about the pt. Pt is asleep but arousable. No SOB, no sign of pain and discomfort. Safe environment provided. Suicide precaution observed. Will continue to monitor.
[2016-11-19 07:30] LABS: ANION GAP < 3 (5-15); GFR AFRICAN AMERICAN 131 mL/min (>90)
--- NOTE | 2016-11-19 07:30 | NUR ---
Safety Resting in bed. Safe environment provided. In no distress.
--- NOTE | 2016-11-19 07:45 | NUR ---
Safety Suicide precaution observed. Safe environment noted.
--- NOTE | 2016-11-19 08:00 | NUR ---
Safety Suicide precaution observed. Safe environment noted.
--- NOTE | 2016-11-19 08:15 | NUR ---
Assessment and Morning Care Pt awake, alert, oriented x4. Reports feeling better. Refused to Magnesium IVPB ordered. Educated the pt re: his magnesium level, risks and benefits. Pt still refused. Also refused Prozac and breakfast. Educated re: risks and benefits, still refused. Charge nurse ANDRA Hathaway made aware who informed pt's girlfriend over the phone. IV NS 150ml/hr ongoing. Safe environment observed. Will continue to monitor.
--- NOTE | 2016-11-19 08:30 | NUR ---
Safety monitoring Able to turn self in bed. Suicide precaution observed. Pt calm. In no distress.
--- NOTE | 2016-11-19 08:45 | NUR ---
Safety monitoring Safe environment ensured for pt. Satya's mother at bedside. Educated re: plan of care. In no acute distress.
[2016-11-19] MEDS: FLUoxetine HCL 20 MG CAPSULE (PROzac) PO SCH ×2 (09:00→11:22)
--- NOTE | 2016-11-19 09:00 | NUR ---
Safety monitoring Able to turn self in bed. Suicide precaution observed. Pt calm. In no distress.
--- NOTE | 2016-11-19 09:15 | NUR ---
Safety Monitored for safety. Able to make needs known. Assistance provided as needed.
--- NOTE | 2016-11-19 09:30 | NUR ---
Safety monitoring Pt resting in bed. In no distress. Safe environment provided. Satya's mother at bedside.
--- NOTE | 2016-11-19 09:45 | NUR ---
Safety monitoring Resting in bed. Call light in reach. Safe environment observed.
--- NOTE | 2016-11-19 10:00 | NUR ---
Safety monitoring Pt resting in bed. In no distress. Safe environment provided. Satya's mother at bedside.
--- NOTE | 2016-11-19 10:20 | NUR ---
MD VISIT: DR. SKYLAR CHENG HERE TO SEE PATIENT. SPOKE TO PATIENT RE: PLAN OF CARE.
--- NOTE | 2016-11-19 10:20 | NUR ---
Nursing Pt was able to ambulate the ICU hallway safely. Information education re: Prozac printed and given to pt. New IV place to pt's right hand. Left AC IV discontinued for pt's complain of discomfort.
--- NOTE | 2016-11-19 10:25 | NUR ---
RN NOTES: PSYCH. CONSULT FOLLOW-UP MD EXCHANGE CALLED, SPOKE TO HAYDER.
--- NOTE | 2016-11-19 10:44 | NUR ---
Per Dr. Navarro pt okay not to be on director transportation. No distress noted. Visitors at bedside. Pt agrees to take Magnesium and Prozac after his community living coach leaves. Addendum: 11/19/16 at 1053 by Annabel Murguia RN Also made Dr. Navarro aware that pt's WBC is 3.9. No new order. MD also aware that pt had episode of SVT last night, pt told MD that he was having a bad dream.
--- NOTE | 2016-11-19 10:45 | NUR ---
Safety monitoring Able to turn self in bed. Suicide precaution observed. Pt calm. In no distress.
--- NOTE | 2016-11-19 11:00 | NUR ---
Safety monitoring Pt resting in bed. In no distress. Safe environment provided. Satya's mother at bedside.
--- NOTE | 2016-11-19 11:15 | NUR ---
Safety monitoring Resting in bed. Calm and cooperative. Satya's mother at bedside. Able to turn self in bed. Safe environment provided. Call light in reach.
--- NOTE | 2016-11-19 11:30 | NUR ---
Safety monitoring Monitored for safety. Call light in reach. In no distress. Helped pt tidy the room.
--- NOTE | 2016-11-19 11:45 | NUR ---
Safety monitoring Resting in bed. Call light in reach. Safe environment observed.
--- NOTE | 2016-11-19 12:00 | NUR ---
Safety monitoring Pt resting in bed. In no distress. Safe environment provided. Satya's mother at bedside.
--- NOTE | 2016-11-19 12:15 | NUR ---
Safety monitoring Resting in bed. Calm and cooperative. Satya's mother at bedside. Able to turn self in bed. Safe environment provided. Call light in reach.
--- NOTE | 2016-11-19 12:30 | NUR ---
Safety monitoring Resting in bed. Call light in reach. Safe environment observed.
--- NOTE | 2016-11-19 12:45 | NUR ---
Safety monitoring Resting in bed. Call light in reach. Safe environment observed.
--- NOTE | 2016-11-19 13:00 | NUR ---
Safety monitoring Pt resting in bed. In no distress. Safe environment provided. Satya's mother at bedside.
--- NOTE | 2016-11-19 13:15 | NUR ---
Safety monitoring Resting in bed. Call light in reach. Safe environment observed.
--- NOTE | 2016-11-19 13:30 | NUR ---
Safety monitoring Resting in bed. Call light in reach. Safe environment observed.
--- NOTE | 2016-11-19 13:45 | NUR ---
Safety monitoring Resting in bed. Calm and cooperative. Satya's mother at bedside. Able to turn self in bed. Safe environment provided. Call light in reach.
--- NOTE | 2016-11-19 14:00 | NUR ---
Resting in bed, asleep but arousable. Safe environment provided . Satya's mother at bedside.
--- NOTE | 2016-11-19 14:15 | NUR ---
Resting in bed. Safe environment provided.
--- NOTE | 2016-11-19 14:30 | NUR ---
Nursing Update Pt's traffic law attorney Hartman called. Made pt aware and asked if I could give information. Pt denied. HIPPA observed. Safe environment observed. Call light in reach. Will continue to monitor.
--- NOTE | 2016-11-19 14:45 | NUR ---
Resting in bed. Safe environment provided.
--- NOTE | 2016-11-19 15:00 | NUR ---
Nursing Encouraged pt to ambulate in the hallways. Pt refused. Made pt's bed and helped with hygiene. Will continue to monitor.
--- NOTE | 2016-11-19 15:30 | NUR ---
Nursing Safe environment provided to pt. Able to make needs known. Fiance at bedside. In no distress.
--- NOTE | 2016-11-19 15:45 | NUR ---
Nursing Update Ambulating in the hallway with fiance. In no sign of distress. Still awaiting Dr. Macedo or associate. Pt and pt's fiance made aware.
--- NOTE | 2016-11-19 16:00 | NUR ---
Safety monitoring Pt neatly groomed. Smiling and pleasantly conversing with RNHamlet Hernadez at bedside. Safe environment provided.
--- NOTE | 2016-11-19 16:15 | NUR ---
Pt is in safe environment. Call light in reach.
--- NOTE | 2016-11-19 16:36 | NUR ---
Paged Dr. Navarro to clarify order to transfer pt to [facility].
--- NOTE | 2016-11-19 16:37 | NUR ---
Dr. Navarro/Dr. Macedo Spoke with Dr. Navarro. Per Dr. Navarro since Dr. Macedo is here already in the building - to wait for Dr. Macedo's decision. If Dr. Macedo wants the pt to stay over night - then transfer pt to [facility] with sitter. If pt will go home to let Dr. Navarro know.
--- NOTE | 2016-11-19 16:42 | NUR ---
Dr Navarro is here with the pt.
--- NOTE | 2016-11-19 17:03 | NUR ---
Dr. Navarro made aware that pt is going home.
--- NOTE | 2016-11-19 17:31 | NUR ---
Pt is discharged via wheelchair. In no acute distress. Discharge instructions provided. Pt verbalized understanding of teachings performed. With pt is his fiance and fiance's mother. Stable condition.
== END 2016-11-19 17:25 | disposition home or self-care (01) | DRG 812 ==
LOC: SED 15:04 → SIC 17:28
PROVIDERS: ADMIT General Practice; ATTEND General Practice
DX: T39.1X2A Poisoning by 4-Aminophenol derivatives, intentional self-harm, initial encounter (principal); E44.0 Moderate protein-calorie malnutrition; R45.851 Suicidal ideations; F32.9 Major depressive disorder, single episode, unspecified; F12.10 Cannabis abuse, uncomplicated; Z68.23 Body mass index [BMI] 23.0-23.9, adult; Y92.9 Unspecified place or not applicable
CPT/HCPCS: 36415; 80048; 80053; 80076; 80307; 83735-TC; 85025; 87081; 93005; 96365; 99285; G0480; G0481; G0482; J0132; J2060; J2270; J2405; J3475; J7030; J7060